=== PATIENT | male | born 1955 | race Caucasian/White ===

== ENCOUNTER → 2023-06-20 | Outpatient (CLI) | payer MEDICARE, BC, SELFPAY | END | disposition home or self-care (01) | PROVIDERS: Visit Provider Otolaryngology | DX: J32.9 Chronic sinusitis, unspecified (principal) | CPT/HCPCS: 87070; 87205 ==

== ENCOUNTER → 2024-04-01 | Outpatient (CLI) | payer MEDICARE, BC, SELFPAY ==
--- NOTE | 2024-04-01 18:33 | CT_ITS ---
EXAM: CT MAXILLOFACIAL WITHOUT INTRAVENOUS CONTRAST CLINICAL INDICATION: SINUSITIS TECHNIQUE: Helically acquired images were obtained of the face without intravenous contrast. This CT exam was performed using one or more of the following dose reduction techniques: automated exposure control, adjustment of the mA and/or kV according to patient size, and/or use of iterative reconstruction technique. RADIATION DOSE: CTDIvol = 33.06 mGy, DLP = 862.77 mGy-cm. COMPARISON: No relevant prior studies available. FINDINGS: BONES/JOINTS: Mild degenerative cervical spine changes. SOFT TISSUES: Unremarkable. No focal subcutaneous swelling. No discrete fluid collections. VASCULATURE: Mild cervical carotid calcifications, greater on the left, not fully included. ORBITS: Unremarkable. Both globes are unremarkable. Extraocular muscles are normal. Retrobulbar fat appears unremarkable. SINUSES: Apparent nasoantral window in the left medial maxillary sinus and moderate mucosal thickening in the left maxillary sinus. Right oj bullosa and mild left nasal septal deviation. Slight mucosal thickening in the floor of the right maxillary sinus and in a few ethmoid air cells. Small or partially resected left middle turbinate. MASTOID AIR CELLS: Slight fluid signal intensity in multiple and bilateral inferior mastoid air cells. Mastoid antrums and more superior mastoid air cells are well aerated. Well-aerated external auditory canals and middle ears. DENTAL: Multiple root canals in the mandible and maxilla. No significant periapical lucencies. BRAIN AND EXTRA-AXIAL SPACES: Most of the brain is included, not fully included posteriorly. Mild intracranial carotid calcifications. No suspicious intracranial abnormality. CT/Sinus/Facial Bone IMPRESSION: 1. Mild chronic paranasal sinusitis and postprocedural changes. 2. Right oj bullosa and mild left nasal septal deviation. Electronically Signed: Shawna Russell MD at 2:56 EST ,
== END | disposition home or self-care (01) ==
LOC: CT 18:30
PROVIDERS: PCP Family Medicine; Referring Provider Otolaryngology; Visit Provider Otolaryngology
DX: J32.9 Chronic sinusitis, unspecified (principal)
CPT/HCPCS: 70486

== ENCOUNTER → 2024-06-26 | Outpatient (CLI) | payer MEDICARE, BC, SELFPAY ==
--- NOTE | 2024-06-26 12:52 | RAD_ITS ---
PROCEDURE: CHEST PA AND LATERAL REASON FOR EXAM: 69-year-old male, asthma. Cough, drainage from sinuses. TECHNIQUE: Frontal and lateral views of the chest. COMPARISON: None. FINDINGS: Heart size is mildly enlarged with prominent pulmonary vasculature. Trace left pleural effusion. The mediastinal contour is unremarkable. No focal consolidation or pneumothorax. Degenerative changes are identified within the thoracic spine. RAD/Chest PA and Lateral IMPRESSION: Findings of mild CHF/volume overload. Reading Location: [id number]
== END | disposition home or self-care (01) ==
PROVIDERS: PCP Family Medicine; Referring Provider Internal Medicine Pulmonary Disease; Visit Provider Internal Medicine Pulmonary Disease
DX: J45.909 Unspecified asthma, uncomplicated (principal)
CPT/HCPCS: 71046